=== PATIENT | female | born 1960 | race Caucasian/White ===

== ENCOUNTER 2016-10-28 11:01 | Emergency (ER) | payer BC ==
[~2016-10-28] VITALS: Ht 160 cm; Wt 95.6 kg
[~2016-10-28 11:01] MED LIST: AMLO5TAB22 PO; BUPR-175 PO; ESCI20TA PO; ESZO2 PO; IBUP800T23 PO
[2016-10-28 11:12] VITALS: BP 126/68; PULSE 91; RESP 18; TEMP 98.3; O2SAT 95
[2016-10-28] MEDS ORDERED: IBUP-232 PO (12:40)
--- NOTE | 2016-10-28 12:41 | PD ---
HPI Chief Complaint: Fall Time Seen by Provider: 12:30 Travel History International Travel<30 days: No Contact w/Intl Traveler<30days: No Traveled to known affect area: No History of Present Illness HPI The patient's 56 years old and complains of left hand pain/wrist pain. It started right after she was a mechanical fall today. At the same time she injured her right ankle however was ambulatory immediately afterwards and into the ER from the parking lot. The hand pain is constant and worse with palpation. Swelling noted overlying the dorsal and radial aspect of the left hand. No head injury or loss of consciousness. PFSH Past Medical History Medical History: Denies Significant Hx Diminished Hearing: No Hypertension: Yes Tetanus Vaccination: < 5 Years Influenza Vaccination: Yes ?: Not Past Surgical History Hysterectomy: Yes Joint Replacement: Yes (rt hip 2016) Social History Alcohol Use: No Tobacco Use: No (quit 1996) Substance Use: No Allergies-Medications (Allergen,Severity, Reaction): Coded Allergies: codeine (Unverified Allergy, Mild, RASH, 10/28/16) Reported Meds & Prescriptions Reported Meds & Active Scripts Active Lortab (Hydrocodone-Acetaminophen) 5-325 Mg Tab 1-2 Tab PO Q6H PRN Ibuprofen 600 Mg Tab 600 Mg PO Q6H PRN Ibuprofen 800 Mg Tab 800 Mg PO TID PRN Reported Wellbutrin (Bupropion HCl) 75 Mg Tab 75 Mg PO DAILY Lunesta (Eszopiclone) 2 Mg Tab 2 Mg PO HS Escitalopram Oxalate 20 Mg Tab 20 Mg PO DAILY Amlodipine Besylate 5 mg (Amlodipine Besylate) 5 Mg Tab 1 Tab PO DAILY Review of Systems General / Constitutional: No: Fever Physical Exam Narrative GENERAL: 56-year-old female pleasant well-nourished well-developed SKIN: Warm and dry. HEAD: Normocephalic. EYES: No scleral icterus. No injection or drainage. NECK: Supple, trachea midline. No JVD or lymphadenopathy. CARDIOVASCULAR: Regular rate and rhythm without murmurs, gallops, or rubs. RESPIRATORY: Breath sounds equal bilaterally. No accessory muscle use. GASTROINTESTINAL: Abdomen soft, non-tender, nondistended. MUSCULOSKELETAL: No cyanosis, or edema. Swelling overlying the dorsal radial aspect of the left hand. Tenderness is present. 2+ radial artery pulse. BACK: Nontender without obvious deformity. No CVA tenderness. Data Data Last Documented VS Vital Signs Date Time Temp Pulse Resp B/P (MAP) Pulse Ox O2 Delivery O2 Flow Rate FiO2 10/28/16 15:14 16 10/28/16 12:27 98 10/28/16 11:12 98.3 91 126/68 (87) Vital signs reviewed Orders Orders Hand, Complete ([id number]) (10/28/16 12:32) Wrist, Complete ([id number]) (10/28/16 12:32) Ice/Cold Pack (10/28/16 12:32) Ibuprofen (Motrin) (10/28/16 12:45) Splint Or Brace Apply/Monitor (10/28/16 14:04) Acetamin-Hydrocod 325-5 Mg ([place] 5-325 (10/28/16 14:15) ^ Sling (10/28/16 14:24) Fiberglass Thumb Spica Adult (10/28/16 ) MDM Medical Decision Making Medical Screen Exam Complete: Yes Emergency Medical Condition: Yes Medical Record Reviewed: Yes Differential Diagnosis Carpal fracture, distal radius fracture, contusion, sprain Narrative Course Last 24 hours Impressions Wrist X-Ray 10/28/16 1232 Signed Impressions: Service Date/Time: Friday, October 28, 2016 12:43 - CONCLUSION: Comminuted and minimally displaced fracture through the distal radial metaphysis with intra-articular extension. Helder Arnold MD Hand X-Ray 10/28/16 1232 Signed Impressions: Service Date/Time: Friday, October 28, 2016 12:46 - CONCLUSION: There is a transverse mildly comminuted fracture of the distal radial metaphysis with fracture extension into the adjacent joint spaces. There is a slight dorsal angulation of the distal radius and there is posterior wrist soft tissue swelling. Sy Kumar MD Sugar tong splint applied. d/w Dr Goodman pa, ok for outpt follow up d/w patient, amenable with plan Diagnosis Primary Impression: Fall Qualified Codes: W19.XXXA - Unspecified fall, initial encounter Additional Impression: Hand contusion Qualified Codes: S60.222A - Contusion of left hand, initial encounter Referrals: Kwadwo Tate MD 3 days Additional Instructions: You have a choice when it comes to health care, and we are glad that you chose [facility]. Hopefully, we have met your expectations on today's visit. You are welcome to return to [facility] at any time, as we are committed to meeting the health care needs of our community. PLEASE DO NOT TAKE LUNESTA AND LORTAB AT THE SAME TIME. PLEASE DO NOT DRIVE, WORK OR LEAVE THE HOUSE AFTER TAKING LORTAB. Med/Other Pt SpecificInfo: Prescription(s) given Scripts Hydrocodone-Acetaminophen (Lortab) 5-325 Mg Tab 1-2 TAB PO Q6H Y for PAIN SCALE 6 TO 10, #12 TAB 0 Refills Prov: Haseeb Garcia MD 10/28/16 Ibuprofen (Ibuprofen) 600 Mg Tab 600 MG PO Q6H Y for PAIN, #14 TAB 0 Refills Prov: Haseeb Garcia MD 10/28/16 Disposition: 01 DISCHARGE HOME Condition: Stable Haseeb Garcia MD Oct 28, 2016 12:41
[2016-10-28] MEDS ORDERED: IBUPROFEN 600 MG TAB PO ONE (12:45)
--- NOTE | 2016-10-28 13:19 | RADRPT ---
EXAM DATE/TIME: 10/28/2016 12:46 [facility] COMPARISON: No previous studies available for comparison. INDICATIONS : Left hand pain post fall. MEDICAL HISTORY : Hypertension. SURGICAL HISTORY : Hysterectomy. Total right hip replacement. ENCOUNTER: Initial ACUITY: 1 day PAIN SCORE: 10/10 LOCATION: Left hand FINDINGS: 3 views of the left hand demonstrate a transverse mildly comminuted fracture of the distal radial met aphysis with extension of fracture line into the distal radioulnar joint and radiocarpal joint. There is slight dorsal angulation of the distal aspect of the radius. No carpal bone fracture is visualize d. There is soft tissue swelling posteriorly. CONCLUSION: There is a transverse mildly comminuted fracture of the distal radial metaphysis with fracture extens ion into the adjacent joint spaces. There is a slight dorsal angulation of the distal radius and ther e is posterior wrist soft tissue swelling. Sy Kumar MD on October 28, 2016 at 13:09 Board Certified Radiologist. This report was verified electronically.
[2016-10-28] MEDS ORDERED: HYDR-3533 PO (14:14)
[2016-10-28] MEDS ORDERED: ACETAMINOPHEN/HYDROcodone 325 MG/5 MG TAB PO ONE (14:15)
[2016-10-28 15:14] VITALS: RESP 16
--- NOTE | 2016-10-28 15:29 | RADRPT ---
EXAM DATE/TIME: 10/28/2016 12:43 [facility] COMPARISON: No previous studies available for comparison. INDICATIONS : Left posterior/lateral wrist pain post fall. MEDICAL HISTORY : Hypertension. SURGICAL HISTORY : Hysterectomy. Right total hip replacement. ENCOUNTER: Initial ACUITY: 1 day PAIN SCORE: 10/10 LOCATION: Left wrist FINDINGS: Three view examination of the left wrist demonstrates comminuted and minimally displaced fracture thr ough the distal radial metaphysis with intra-articular extension. Distal ulna and carpal bones appear to be intact. CONCLUSION: Comminuted and minimally displaced fracture through the distal radial metaphysis with intra-peter cular extension. Helder Arnold MD on October 28, 2016 at 15:25 Board Certified Radiologist. This report was verified electronically.
== END 2016-10-28 15:22 | disposition home or self-care (01) ==
LOC: PHED 11:01 → PHEFT 15:22
DX: S52.502A Unspecified fracture of the lower end of left radius, initial encounter for closed fracture (principal); W19.XXXA Unspecified fall, initial encounter; I10 Essential (primary) hypertension; Z87.891 Personal history of nicotine dependence
CPT/HCPCS: 29125; 73110; 73130; 99283; L3808

== ENCOUNTER 2017-07-20 23:40 | Emergency (ER) | payer BC ==
[~2017-07-20] VITALS: Ht 160 cm; Wt 97.0 kg
[~2017-07-20 23:40] MED LIST changes: +HYDR-3533 PO; +IBUP-232 PO
[2017-07-20 23:51] VITALS: BP 153/76; PULSE 96; RESP 16; TEMP 98.7; O2SAT 95
[2017-07-21] MEDS ORDERED: CLON0.1T PO (00:06)
[2017-07-21] MEDS ORDERED: THYR15 PO (00:06)
[2017-07-21] MEDS ORDERED: ESZO2 PO (00:06)
[2017-07-21] MEDS ORDERED: AUGM875T3 PO (00:14)
[2017-07-21] MEDS ORDERED: BENZ1CAP54 PO (00:14)
--- NOTE | 2017-07-21 00:14 | PD ---
HPI Chief Complaint: Cold / Flu Symptoms Time Seen by Provider: 00:05 Travel History International Travel<30 days: No Contact w/Intl Traveler<30days: No Traveled to known affect area: No History of Present Illness HPI Patient is a 57-year-old female presents the emergency room with complaints of cold-like symptoms, patient reports that for the past 3 weeks, she has had a nonproductive dry cough. She did see her primary care doctor who started her on Augmentin, reports that she has 3 days left of Augmentin. Patient reports that the antibiotics are not helping her, she did call her primary care doctor today who instructed her to come to the emergency room to get an x-ray of her chest. Patient denies any fevers or chills, reports that her mother was sick with similar symptoms. She with no chest pain or shortness of breath, patient with no other complaints at this time. PFSH Past Medical History COPD: Yes Diminished Hearing: No Hypertension: Yes ?: Not Past Surgical History Hysterectomy: Yes Joint Replacement: Yes (rt hip 2016) Social History Alcohol Use: No Tobacco Use: No (quit 1996) Substance Use: No Allergies-Medications (Allergen,Severity, Reaction): Coded Allergies: codeine (Verified Allergy, Mild, RASH, 07/20/17) Reported Meds & Prescriptions Reported Meds & Active Scripts Active Reported Augmentin (Amoxicillin-Clavulanate) 875-125 Mg Tab 1 Tab PO DAILY Benzonatate 100 Mg Cap 100 Mg PO TID PRN [place] Thyroid (Thyroid) 15 Mg Tab 15 Mg PO BID Clonidine (Clonidine HCl) 0.1 Mg Tab 0.1 Mg PO HS Lunesta (Eszopiclone) 2 Mg Tab 5 Mg PO HS Escitalopram Oxalate 20 Mg Tab 20 Mg PO DAILY Amlodipine Besylate 5 mg (Amlodipine Besylate) 5 Mg Tab 1 Tab PO DAILY Review of Systems General / Constitutional: No: Fever, Chills Eyes: No: Visual changes HENT: No: Headaches Cardiovascular: No: Chest Pain or Discomfort Respiratory: Positive: Cough, No: Shortness of Breath, Wheezing, Sneezing Gastrointestinal: No: Abdominal Pain Genitourinary: No: Dysuria Musculoskeletal: No: Pain Skin: No Rash Neurologic: No: Weakness Psychiatric: No: Depression Endocrine: No: Polydipsia Hematologic/Lymphatic: No: Easy Bruising Physical Exam Narrative GENERAL: Mild distress SKIN: Focused skin assessment warm/dry. HEAD: Atraumatic. Normocephalic. EYES: Pupils equal and round. No scleral icterus. No injection or drainage. ENT: No nasal bleeding or discharge. Mucous membranes pink and moist. NECK: Trachea midline. No JVD. CARDIOVASCULAR: Regular rate and rhythm. No murmur appreciated. RESPIRATORY: No accessory muscle use. Clear to auscultation. Breath sounds equal bilaterally. GASTROINTESTINAL: Abdomen soft, non-tender, nondistended. Hepatic and splenic margins not palpable. MUSCULOSKELETAL: No obvious deformities. No clubbing. No cyanosis. No edema. NEUROLOGICAL: Awake and alert. Normal speech. PSYCHIATRIC: Appropriate mood and affect; insight and judgment normal. Data Data Last Documented VS Vital Signs Date Time Temp Pulse Resp B/P (MAP) Pulse Ox O2 Delivery O2 Flow Rate FiO2 07/21/17 01:02 85 20 112/72 (85) 97 Room Air 07/20/17 23:51 98.7 Orders Orders Complete Blood Count With Diff (07/21/17 00:09) Basic Metabolic Panel (Bmp) (07/21/17 00:09) Influenzae A/B Antigen (07/21/17 00:09) Iv Access Insert/Monitor (07/21/17 00:09) Oximetry (07/21/17 00:09) Chest, Pa & Lat (07/21/17 00:09) Sodium Chloride 0.9% Flush (Ns Flush) (07/21/17 00:15) Methylprednisolone So Succ Inj (Solumedr (07/21/17 00:15) Albuterol-Ipratropium Neb (Duoneb Neb) (07/21/17 00:15) Guaifenesin Liq (Robitussin Liq) (07/21/17 00:15) Labs Laboratory Tests Test 07/21/17 00:25 White Blood Count 10.2 TH/MM3 Red Blood Count 4.19 MIL/MM3 Hemoglobin 13.8 GM/DL Hematocrit 40.8 % Mean Corpuscular Volume 97.6 FL Mean Corpuscular Hemoglobin 33.0 PG Mean Corpuscular Hemoglobin Concent 33.8 % Red Cell Distribution Width 12.2 % Platelet Count 195 TH/MM3 Mean Platelet Volume 8.0 FL Neutrophils (%) (Auto) 64.7 % Lymphocytes (%) (Auto) 24.5 % Monocytes (%) (Auto) 3.8 % Eosinophils (%) (Auto) 6.0 % Basophils (%) (Auto) 1.0 % Neutrophils # (Auto) 6.6 TH/MM3 Lymphocytes # (Auto) 2.5 TH/MM3 Monocytes # (Auto) 0.4 TH/MM3 Eosinophils # (Auto) 0.6 TH/MM3 Basophils # (Auto) 0.1 TH/MM3 CBC Comment DIFF FINAL Differential Comment Blood Urea Nitrogen 6 MG/DL Creatinine 0.60 MG/DL Random Glucose 101 MG/DL Calcium Level 8.7 MG/DL Sodium Level 142 MEQ/L Potassium Level 3.5 MEQ/L Chloride Level 110 MEQ/L Carbon Dioxide Level 23.4 MEQ/L Anion Gap 9 MEQ/L Estimat Glomerular Filtration Rate 103 ML/MIN MDM Medical Decision Making Medical Screen Exam Complete: Yes Emergency Medical Condition: Yes Medical Record Reviewed: Yes Interpretation(s) Vital Signs Date Time Temp Pulse Resp B/P (MAP) Pulse Ox O2 Delivery O2 Flow Rate FiO2 07/20/17 23:51 98.7 96 16 153/76 (101) 95 Differential Diagnosis Viral syndrome, pneumonia, bronchitis Narrative Course During the course of the patients emergency department visit, the patients history, examination, and differential diagnosis were reviewed with the patient. The patient was placed on a manager cardiac cath with oximetry and frequent blood pressure monitoring. The patient had an IV access obtained and blood work sent for analysis. The patient was initially provided IV Solu-Medrol, guaifenesin, DuoNeb treatment The patients laboratory studies were reviewed and remarkable for CBC & BMP Diagram 07/21/17 00:25 Calcium Level 8.7 Microbiology Date/Time Source Procedure Growth Status 07/21/17 00:25 Nasal Aspirate Influenza Types A,B Antigen (JAZMINE) - Final NEGATIVE FOR FLU A AND B ANTIGEN.... Complete Radiology studies were reviewed and remarkable for Last Impressions Chest X-Ray 07/21/17 0009 Signed Impressions: Service Date/Time: Friday, July 21, 2017 00:41 - CONCLUSION: No acute disease. Abhinav Pace Jr., MD Vital Signs Date Time Temp Pulse Resp B/P (MAP) Pulse Ox O2 Delivery O2 Flow Rate FiO2 07/21/17 01:02 85 20 112/72 (85) 97 Room Air 07/21/17 00:41 97 07/21/17 00:14 20 Room Air 07/20/17 23:51 98.7 96 16 153/76 (101) 95 Vital signs are stable, lab work benign, x-ray the chest with no acute disease. Patient with most likely viral syndrome vs bronchitis. Patient will be described steroids as well as pro-air. patient will return to the emergency room as needed. Diagnosis Primary Impression: Bronchitis Patient Instructions: General Instructions Additional Instructions: Please provide patient with a copy of their lab work and studies at discharge* * Please follow up with your primary care doctor in 2-3 days Return to the ER if symptoms worsen or progress Return to the ER as needed Med/Other Pt SpecificInfo: Prescription(s) given Scripts Prednisone (Prednisone) 20 Mg Tab 20 MG PO BID for 5 Days, #10 TAB 0 Refills Prov: Celia Jimenez DO 07/21/17 Albuterol 8.5 GM Inh (Proair Hfa 8.5 GM Inh) 90 Mcg/Act Aer 2 PUFF INH Q4-6H Y for SHORTNESS OF BREATH, #1 INHALER 0 Refills 108 mcg/actuation Prov: Celia Jimenez DO 07/21/17 Disposition: 01 DISCHARGE HOME Condition: Stable Celia Jimenez DO July 21, 2017 00:14
[2017-07-21] MEDS ORDERED: guaiFENesin SOLUTION 200 MG/10 ML CUP PO ONE (00:15)
[2017-07-21] MEDS ORDERED: RESP: ALBUTEROL 2.5 MG/IPRATROPIUM 0.5 MG NEB (SCH) INH ONE (00:15)
[2017-07-21] MEDS ORDERED: SODIUM CHLORIDE 0.9% FLUSH 10 ML FLUSH IVF PRN (00:15)
[2017-07-21] MEDS ORDERED: methylPREDNISolone SOD SUCC 125 MG/2 ML VIAL IV PUSH ONE (00:15)
[2017-07-21 00:39] LABS: AUTOMATED NEUTROPHIL # 6.6 TH/MM3 (1.8-7.7); BASOPHIL # 0.1 TH/MM3 (0-0.2); EOSINOPHIL # 0.6 TH/MM3 (0-0.4); HEMATOCRIT 40.8 % (35.0-46.0); HEMOGLOBIN 13.8 GM/DL (11.6-15.3); LYMPH % 24.5 % (9.0-44.0); LYMPHOCYTE # 2.5 TH/MM3 (1.0-4.8); MEAN CELL VOLUME 97.6 FL (80.0-100.0); MEAN CORPUSCULAR HGB CONC 33.8 % (32.0-36.0); MONO % 3.8 % (0.0-8.0); MONOCYTE # 0.4 TH/MM3 (0-0.9); NEUT % 64.7 % (16.0-70.0); PLATELET COUNT 195 TH/MM3 (150-450); RED BLOOD COUNT 4.19 MIL/MM3 (4.00-5.30); RED CELL DISTRIBUTION WIDTH 12.2 % (11.6-17.2); WHITE BLOOD COUNT 10.2 TH/MM3 (4.0-11.0)
[2017-07-21 00:41] VITALS: O2SAT 97
[2017-07-21 00:50] LABS: BICARBONATE 23.4 MEQ/L (21.0-32.0); CALCIUM 8.7 MG/DL (8.5-10.1)
--- NOTE | 2017-07-21 00:51 | RADRPT ---
EXAM DATE/TIME: 07/21/2017 00:41 [facility] COMPARISON: No previous studies available for comparison. INDICATIONS : Cough for 3 weeks MEDICAL HISTORY : None. SURGICAL HISTORY : None. ENCOUNTER: Initial ACUITY: 3 weeks PAIN SCORE: 0/10 LOCATION: Bilateral chest FINDINGS: PA and lateral views of the chest demonstrate the lungs to be symmetrically aerated without evidence of mass, infiltrate or effusion. The cardiomediastinal contours are unremarkable. Osseous structure s are intact. CONCLUSION: No acute disease. Abhinav Pace Jr., MD on July 21, 2017 at 0:49 Board Certified Radiologist. This report was verified electronically.
[2017-07-21 00:54] LABS: CREATININE 0.6 MG/DL (0.50-1.00)
[2017-07-21 01:02] VITALS: BP 112/72; PULSE 85; RESP 20; O2SAT 97
[2017-07-21] MEDS ORDERED: ALBUAER3 INH (01:10)
[2017-07-21] MEDS ORDERED: PRED20 PO (01:10)
[2017-07-21] MEDS ORDERED: ALBUTEROL SULFATE 90 MCG/ACT HFA 8 GM INHALER INH ONE (01:15)
[2017-07-21 01:21] VITALS: BP 112/70
== END 2017-07-21 01:34 | disposition home or self-care (01) ==
LOC: PHED 23:40
DX: J44.9 Chronic obstructive pulmonary disease, unspecified (principal); I10 Essential (primary) hypertension; Z87.891 Personal history of nicotine dependence
CPT/HCPCS: 71046; 80048; 85025; 87804; 94664; 96374; 99284; J2930

== ENCOUNTER 2017-07-26 15:33 | Emergency (ER) | payer BC ==
[~2017-07-26] VITALS: Ht 160 cm; Wt 90.5 kg
[~2017-07-26 15:33] MED LIST changes: +ALBUAER3 INH; +AUGM875T3 PO; +BENZ1CAP54 PO; -BUPR-175 PO; +CLON0.1T PO; -HYDR-3533 PO; -IBUP-232 PO; -IBUP800T23 PO; +PRED20 PO; +THYR15 PO
[2017-07-26 15:45] VITALS: BP 130/77; PULSE 83; RESP 16; TEMP 98.2; O2SAT 97
[2017-07-26] MEDS ORDERED: AMLO5TAB2 PO (15:57)
[2017-07-26] MEDS ORDERED: LEXA20TA PO (15:57)
--- NOTE | 2017-07-26 16:23 | PD ---
HPI Chief Complaint: Dizziness Time Seen by Provider: 16:20 Travel History International Travel<30 days: No Contact w/Intl Traveler<30days: No Traveled to known affect area: No History of Present Illness HPI This 57-year-old female is complaining of feeling lightheaded. He was a patient in the emergency department a few days ago. She had been complaining of cough. Her primary care doctor put her on Augmentin. She did not improve so she was sent here in she had an x-ray done which was negative. Her white count was 10,000. She was put on a 4 day course of prednisone. She says she felt a little better on the prednisone but when she stopped it she started feeling better. She feels like dizzy when she gets up and she says she been sweating at night. Her appetite has been diminished PFSH Past Medical History Depression: Yes Cardiovascular Problems: Yes (htn on meds) COPD: Yes Diminished Hearing: No Hypertension: Yes Thyroid Disease: Yes (hypo) Tetanus Vaccination: < 5 Years Influenza Vaccination: No ?: Not Past Surgical History Hysterectomy: Yes Joint Replacement: Yes (rt hip 2016) Social History Alcohol Use: No (states quit in 2013) Tobacco Use: No (quit 1996- smoked cigs 1 ppd) Substance Use: No Allergies-Medications (Allergen,Severity, Reaction): Coded Allergies: codeine (Verified Allergy, Mild, RASH, 07/20/17) Reported Meds & Prescriptions Reported Meds & Active Scripts Active Proair Hfa 8.5 GM Inh (Albuterol Sulfate) 90 Mcg/Act Aer 2 Puff INH Q4-6H PRN 108 mcg/actuation Reported Amlodipine (Amlodipine Besylate) 5 Mg Tab 5 Mg PO DAILY Lexapro (Escitalopram Oxalate) 20 Mg Tab 20 Mg PO DAILY [place] Thyroid (Thyroid) 15 Mg Tab 15 Mg PO BID Clonidine (Clonidine HCl) 0.1 Mg Tab 0.1 Mg PO HS Lunesta (Eszopiclone) 2 Mg Tab 5 Mg PO HS Review of Systems General / Constitutional: No: Fever, Chills Eyes: No: Diploplia, Blurred Vision HENT: Positive: Lightheadedness, No: Headaches Cardiovascular: No: Chest Pain or Discomfort, Palpitations Respiratory: No: Cough, Shortness of Breath Gastrointestinal: Positive: Loss of Appetite, No: Vomiting Genitourinary: No: Urgency, Frequency Musculoskeletal: No: Myalgias Skin: No Rash Neurologic: Positive: Weakness Hematologic/Lymphatic: No: Easy Bruising Physical Exam Narrative GENERAL: Well-developed female SKIN: Focused skin assessment warm/dry. HEAD: Atraumatic. Normocephalic. EYES: Pupils equal and round. No scleral icterus. No injection or drainage. ENT: No nasal bleeding or discharge. Mucous membranes pink and moist. NECK: Trachea midline. No JVD. CARDIOVASCULAR: Regular rate and rhythm. No murmur appreciated. RESPIRATORY: No accessory muscle use. Clear to auscultation. Breath sounds equal bilaterally. GASTROINTESTINAL: Abdomen soft, non-tender, nondistended. Hepatic and splenic margins not palpable. MUSCULOSKELETAL: No obvious deformities. No clubbing. No cyanosis. No edema. NEUROLOGICAL: Awake and alert. No obvious cranial nerve deficits. Motor grossly within normal limits. Normal speech. PSYCHIATRIC: Appropriate mood and affect; insight and judgment normal. Data Data Last Documented VS Vital Signs Date Time Temp Pulse Resp B/P (MAP) Pulse Ox O2 Delivery O2 Flow Rate FiO2 07/26/17 16:39 76 16 141/77 (98) 97 16 150/100 (117) 90 16 156/88 (110) 07/26/17 15:50 97 Room Air 07/26/17 15:45 98.2 Orders Orders Complete Blood Count With Diff (07/26/17 16:20) Comprehensive Metabolic Panel (07/26/17 16:20) Urinalysis - C+S If Indicated (07/26/17 16:20) Orthostatic Vital Signs (07/26/17 16:22) Labs Laboratory Tests Test 07/26/17 16:30 07/26/17 17:10 White Blood Count 9.0 TH/MM3 Red Blood Count 4.69 MIL/MM3 Hemoglobin 15.9 GM/DL Hematocrit 45.9 % Mean Corpuscular Volume 97.9 FL Mean Corpuscular Hemoglobin 33.8 PG Mean Corpuscular Hemoglobin Concent 34.6 % Red Cell Distribution Width 12.7 % Platelet Count 180 TH/MM3 Mean Platelet Volume 8.0 FL Neutrophils (%) (Auto) 68.5 % Lymphocytes (%) (Auto) 17.7 % Monocytes (%) (Auto) 5.7 % Eosinophils (%) (Auto) 4.6 % Basophils (%) (Auto) 3.5 % Neutrophils # (Auto) 6.2 TH/MM3 Lymphocytes # (Auto) 1.6 TH/MM3 Monocytes # (Auto) 0.5 TH/MM3 Eosinophils # (Auto) 0.4 TH/MM3 Basophils # (Auto) 0.3 TH/MM3 CBC Comment DIFF FINAL Differential Comment Blood Urea Nitrogen 13 MG/DL Creatinine 0.65 MG/DL Random Glucose 95 MG/DL Total Protein 7.6 GM/DL Albumin 3.6 GM/DL Calcium Level 8.9 MG/DL Alkaline Phosphatase 71 U/L Aspartate Amino Transf (AST/SGOT) 128 U/L Alanine Aminotransferase (ALT/SGPT) 87 U/L Total Bilirubin 1.4 MG/DL Sodium Level 136 MEQ/L Potassium Level 3.9 MEQ/L Chloride Level 104 MEQ/L Carbon Dioxide Level 24.9 MEQ/L Anion Gap 7 MEQ/L Estimat Glomerular Filtration Rate 94 ML/MIN MDM Medical Decision Making Medical Screen Exam Complete: Yes Emergency Medical Condition: Yes Medical Record Reviewed: Yes Differential Diagnosis Potential includes electrolyte imbalance, dehydration, Narrative Course Comprehensive metabolic profile was done and there is some mild abnormalities of liver function tests. The patient says she does not drink at all. Prednisone would not have caused this. I recommended she follow-up with her primary care doctor who may want to repeat these tests prior to extensive evaluation. I do not think the abnormal LFTs explain her symptoms. She will be released Diagnosis Primary Impression: Resolving bronchiti Disposition: 01 DISCHARGE HOME Condition: Stable Jamison Sutton MD July 26, 2017 16:23
[2017-07-26 16:39] VITALS: BP_SYST 141; BP_SYST 150; BP_SYST 156; BP_DIAS 100; BP_DIAS 77; BP_DIAS 88; RESP 16
[2017-07-26 16:44] LABS: AUTOMATED NEUTROPHIL # 6.2 TH/MM3 (1.8-7.7); BASOPHIL # 0.3 TH/MM3 (0-0.2); BASOPHIL % 3.5 % (0.0-2.0); EOSINOPHIL # 0.4 TH/MM3 (0-0.4); EOSINOPHIL % 4.6 % (0.0-4.0); HEMATOCRIT 45.9 % (35.0-46.0); HEMOGLOBIN 15.9 GM/DL (11.6-15.3); LYMPH % 17.7 % (9.0-44.0); LYMPHOCYTE # 1.6 TH/MM3 (1.0-4.8); MEAN CELL VOLUME 97.9 FL (80.0-100.0); MEAN CORPUSCULAR HEMOGLOBIN 33.8 PG (27.0-34.0); MEAN CORPUSCULAR HGB CONC 34.6 % (32.0-36.0); MONO % 5.7 % (0.0-8.0); MONOCYTE # 0.5 TH/MM3 (0-0.9); NEUT % 68.5 % (16.0-70.0); PLATELET COUNT 180 TH/MM3 (150-450); RED BLOOD COUNT 4.69 MIL/MM3 (4.00-5.30); RED CELL DISTRIBUTION WIDTH 12.7 % (11.6-17.2)
[2017-07-26 16:47] LABS: CHLORIDE 104 MEQ/L (98-107); SODIUM (NA) 136 MEQ/L (136-145)
[2017-07-26 16:50] LABS: ALBUMIN 3.6 GM/DL (3.4-5.0); BICARBONATE 24.9 MEQ/L (21.0-32.0); CALCIUM 8.9 MG/DL (8.5-10.1); GLUCOSE,RANDOM 95 MG/DL (74-106)
[2017-07-26 16:51] LABS: BLOOD UREA NITROGEN 13 MG/DL (7-18)
[2017-07-26 16:53] LABS: ALT (GPT) 87 U/L (10-53); AST (GOT) 128 U/L (15-37)
[2017-07-26 16:54] LABS: CREATININE 0.65 MG/DL (0.50-1.00); GLOMERULAR FILTRATION RATE 94 ML/MIN (>89)
[2017-07-26 16:55] LABS: TOTAL BILIRUBIN ADULT 1.4 MG/DL (0.2-1.0); TOTAL PROTEIN 7.6 GM/DL (6.4-8.2)
[2017-07-26 16:56] LABS: ALKALINE PHOSPHATASE 71 U/L (45-117)
[2017-07-26 17:37] LABS: BLOOD, URINE NEG (NEG); GLUCOSE,URINE NEG (NEG); KETONE, URINE 40 mg/dL (NEG); NITRITE,URINE NEG (NEG); URINE COLOR YELLOW (YELLW/STRAW); URINE LEUKOCYTE ESTERASE NEG (NEG)
[2017-07-26 17:49] LABS: BILIRUBIN, URINE NEG (NEG)
[2017-07-26 17:50] LABS: WBC, URINE 0-2 /hpf (0-5)
[2017-07-26 17:51] LABS: AMORPHOUS SEDIMENT, URINE MOD; SQUAMOUS EPITHELIAL CELL URINE > 8 /hpf (0-5)
== END 2017-07-26 18:06 | disposition home or self-care (01) ==
LOC: PHED 15:33
DX: J40 Bronchitis, not specified as acute or chronic (principal); I10 Essential (primary) hypertension; J44.9 Chronic obstructive pulmonary disease, unspecified; Z88.5 Allergy status to narcotic agent
CPT/HCPCS: 80053; 81001; 85025; 99283